=== PATIENT | male | born 1950 | race Caucasian/White ===

== ENCOUNTER → 2017-01-12 | Outpatient (CLI) | payer MEDICARE ==
--- NOTE | 2017-01-12 23:04 | MR ---
EXAMINATION TYPE: MR lumbar spine wo con DATE OF EXAM: 01/12/2017 COMPARISON: 11/12/2011 HISTORY: LBP, radiates into rt buttocks TECHNIQUE: Multiplanar, multisequence images of the lumbar spine were acquired. There is a slight levoscoliosis. There is some narrowing and decreased signal in the disks at L5-S1 a nd L2-3. There are small posterior disc herniation at L5-S1 without significant impingement on the sp inal canal. There is developmentally adequate spinal canal. There is no compression fracture. There i s no paraspinal mass. The neuroforamina are fairly well-maintained. Upper sacroiliac joints appear no rmal. Lumbar nerve roots appear normal. There is minimal posterior disc bulge at L1-3 and L4-5. IMPRESSION: Mild degenerative disc changes for the patient's age. Minimal posterior L5-S1 disc herniation. No spi nal stenosis. No fracture. There is overall no adverse change compared to old exam.
== END ==
LOC: RADMRIMAIN 21:01
PROVIDERS: ATTEND Psychiatry & Neurology Neurology
DX: M48.06 Spinal stenosis, lumbar region (principal); M51.27 Other intervertebral disc displacement, lumbosacral region; M51.36 Other intervertebral disc degeneration, lumbar region
CPT/HCPCS: 72148

== ENCOUNTER 2017-10-26 07:56 | Day surgery (SDC) | payer MEDICARE ==
[2017-10-24 10:14] VITALS: BMI 31.2
[~2017-10-26 07:56] MED LIST: LACTATED RINGERS 1,000 ML IV SCH
[2017-10-26 08:19] VITALS: TEMP 97.7
[2017-10-26] MEDS ORDERED: LIDOCAINE 1% 20 ML VIAL (10MG/ML) FOR IV START INTRADERMA ONE (08:19)
[2017-10-26] MEDS ORDERED: PROPOFOL 10 MG/ML 20 ML VIAL IV ONE (09:11)
[2017-10-26 10:02] VITALS: RESP 16
[2017-10-26 10:14] VITALS: BP 186/105; PULSE 55
--- NOTE | 2017-10-26 13:27 | P.PCN ---
Date of Procedure: 10/26/17 Procedure(s) Performed: Procedure: Total colonoscopy. Preoperative diagnosis: Blood in the stools. Postoperative diagnosis: 1. Sigmoid diverticulosis with no evidence of acute diverticulitis or strictures. 2. Low-grade internal hemorrhoids without bleeding at the time of this exam. 3. No polyps or tumors seen. Preparation: HalfLytely prep. Sedation: Was provided by anesthesia. Brief clinical history: The patient is a 67-year-old male who is scheduled for this evaluation because of finding of blood in his stools. The patient reported having seen fresh blood in his stools on one occasion within the last month. There is no change in bowels or other abdominal complaints or anemia. He had no prior colonoscopy. Procedure: With the patient on his left lateral decubitus position and after informed consent and adequate sedation, the perianal area was inspected and it did not show any fissures or fistulas. There were no masses felt on digital rectal examination. The Olympus CFQ 160L video colonoscope was then inserted in the rectum in the usual fashion and advanced to the cecum. The mucosa appeared healthy no polyps or tumors were seen. Several diverticular orifices were seen scattered in the sigmoid but there was no evidence of acute diverticulitis or strictures. I retroflexed the endoscope in the rectum before the endoscope was withdrawn. Low-grade internal hemorrhoids were noted but there was no bleeding. The patient tolerated the procedure well. Plan: The patient was reassured. Discussed dietary measures and local care for hemorrhoids. He will follow up with you as planned and further plans can be made based on his course. I would be happy to see in the office if his symptoms recur, otherwise, I recommended repeat colonoscopy for screening in 10 years.
== END 2017-10-26 10:26 | disposition home or self-care (01) ==
LOC: ORWHC2ENDO 07:56
DX: K57.30 Diverticulosis of large intestine without perforation or abscess without bleeding (principal); K64.8 Other hemorrhoids; I10 Essential (primary) hypertension; N40.0 Benign prostatic hyperplasia without lower urinary tract symptoms; Z79.1 Long term (current) use of non-steroidal anti-inflammatories (NSAID); Z79.891 Long term (current) use of opiate analgesic; Z79.51 Long term (current) use of inhaled steroids; Z79.899 Other long term (current) drug therapy; Z88.1 Allergy status to other antibiotic agents; Z88.8 Allergy status to other drugs, medicaments and biological substances
CPT/HCPCS: 45378

== ENCOUNTER → 2017-11-28 | Outpatient (CLI) | payer MEDICARE ==
--- NOTE | 2017-11-28 09:09 | XR ---
EXAMINATION TYPE: XR ribs RT w pa chest xray DATE OF EXAM: 11/28/2017 CLINICAL HISTORY: Persistent right rib pain after coughing. TECHNIQUE: Single frontal view of the chest is obtained. COMPARISON: None FINDINGS: There is no focal air space opacity, pleural effusion, or pneumothorax seen. Cardiomediast inal silhouette is within normal limits. The osseous structures are intact. No displaced acute rib f ractures are seen. Old fracture deformity of the costochondral junction of the ninth right rib is hea led. Incidentally noted moderate right acromioclavicular arthropathy is present. IMPRESSION: No acute displaced fracture of the right ribs. No acute cardiopulmonary process.
== END | disposition home or self-care (01) ==
LOC: RADXRMAIN 08:11
PROVIDERS: ATTEND Nurse Practitioner
DX: R07.81 Pleurodynia (principal)